=== PATIENT | male | born 1985 | race African-American/Black ===

== ENCOUNTER 2023-11-12 14:05 | Emergency (ER) | payer SELFPAY ==
[~2023-11-12] VITALS: Ht 180.3 cm; Wt 102.0 kg
[2023-11-12 14:19] VITALS: O2SAT 99
[2023-11-12] MEDS ORDERED: NAPR-1129 MT (16:17)
[2023-11-12] MEDS: IBUPROFEN 600MG TABLET PO ONE (16:21)
[2023-11-12 17:04] VITALS: BP 125/67; PULSE 81; RESP 18; TEMP 98.2
== END 2023-11-12 17:08 | disposition home or self-care (01) ==
LOC: ER 14:11
DX: M79.642 Pain in left hand (principal); M25.532 Pain in left wrist
CPT/HCPCS: 29125; 73110; 73130; 99284

== ENCOUNTER 2024-08-03 12:12 | Emergency (ER) | payer SELFPAY ==
[~2024-08-03] VITALS: Ht 180.3 cm; Wt 100.0 kg
[~2024-08-03 12:12] MED LIST: NAPR-1129 MT
[2024-08-03 12:23] VITALS: O2SAT 99
[2024-08-03 13:13] LABS: BASOPHILS % 0.4 % (0.0-2.0); DIFFERENTIAL COMMENT 0; EOSINOPHILS % 0.2 % (0.0-5.0); HEMATOCRIT. 42.1 % (42.0-52.0); HEMOGLOBIN. 14.2 g/dL (14.0-18.0); LYMPHOCYTES % 22.7 % (20.0-50.0); MEAN CORPUSCULAR HEMOGLOBIN 26.3 pg (28.0-32.0); MEAN CORPUSCULAR HGB CONC 33.6 g/dL (31.0-37.0); MEAN CORPUSCULAR VOLUME 78.4 fL (80.0-94.0); MEAN PLATELET VOLUME 7.6 fl (7.4-10.4); MONOCYTES % 7.9 % (2.0-8.0); NEUTROPHILS % 68.8 % (40.0-76.0); PLATELET 230 x1000/uL (130-400); RED BLOOD CELL COUNT 5.37 mill/uL (4.7-6.1); RED CELL DISTRIBUTION WIDTH 14.1 % (11.6-14.6); WHITE BLOOD COUNT 11.3 x1000/uL (4.5-11.0)
[2024-08-03] MEDS: ASPIRIN 325MG EC TABLET PO NR (13:15)
[2024-08-03 13:19] LABS: CHLORIDE 103 mEq/L (98-107); SODIUM 138 mEq/L (136-145)
[2024-08-03 13:20] LABS: CALCIUM 9.6 mg/dL (8.7-10.4); CARBON DIOXIDE 29 mEq/L (21-32)
[2024-08-03 13:23] LABS: PARTIAL THROMBOPLASTIN TIME 27.9 sec (23.4-31.0); PROTHROMBIN TIME 10.7 sec (9.6-11.0)
[2024-08-03 13:25] LABS: CREATININE 0.9 mg/dL (0.6-1.3); GLUCOSE 119 mg/dL (70-105); UREA NITROGEN BLOOD 12 mg/dL (9-23)
[2024-08-03 13:26] LABS: TROPONIN I HIGH SENSITIVITY 26 ng/L (3.0-53)
[2024-08-03 13:27] LABS: ALANINE AMINOTRANSFERASE 31 IU/L (10-49); ALBUMIN 4.5 g/dL (3.2-4.8); ASPARTATE AMINOTRANSFERASE 20 IU/L (<34)
[2024-08-03 13:28] LABS: BILIRUBIN TOTAL 0.4 mg/dL (0.1-1.0)
[2024-08-03 15:51] LABS: TROPONIN I HIGH SENSITIVITY 25 ng/L (3.0-53)
[2024-08-03] MEDS: METOCLOPRAMIDE HCL 10MG/2ML VIAL IM NR (16:50)
[2024-08-03] MEDS: KETOROLAC 30MG/ML VIAL IM NR (16:50)
[2024-08-03 17:02] VITALS: BP 133/81; PULSE 88; RESP 19; TEMP 36.7; O2SAT 99
== END 2024-08-03 17:08 | disposition home or self-care (01) ==
LOC: ER 12:12
DX: R07.89 Other chest pain (principal); Z79.899 Other long term (current) drug therapy
CPT/HCPCS: 80053; 85025; 85610; 85730; 86850; 86900; 86901; 84484; 36415; 71045; 93005; 96372; 99285; J1885; J2765; Z7610 ×2